=== PATIENT | female | born 1990 | race American Indian/Alaskan Native ===

== ENCOUNTER 2019-12-26 13:18 | Emergency (ER) | payer SELFPAY ==
[~2019-12-26] VITALS: Ht 170.2 cm; Wt 110.7 kg
[2019-12-26] MEDS ORDERED: VRAYLAR3 MG (13:38)
[2019-12-26] MEDS ORDERED: HYDROCODONE/APAP 5MG-325MG TAB PO ONE (13:45)
[2019-12-26] MEDS ORDERED: ONDANSETRON HCL 4 MG ORAL DISINTEGRATING TAB PO ONE (13:45)
[2019-12-26] MEDS ORDERED: CLINDAMYCIN PHOS 600 MG/ 4 ML VIAL IM ONE (13:45)
[2019-12-26] MEDS ORDERED: IBUPROFEN 200 MG TAB PO ONE (13:45)
[2019-12-26] MEDS ORDERED: HYDROCODONE/APAP 5MG-325MG TAB ONE (13:58)
[2019-12-26] MEDS ORDERED: IBUPROFEN 600 MG TAB ONE (13:58)
[2019-12-26] MEDS ORDERED: CLINDAMYCIN PHOS 600 MG/ 4 ML VIAL ONE (13:58)
[2019-12-26] MEDS ORDERED: ONDANSETRON HCL 4 MG ORAL DISINTEGRATING TAB ONE (13:58)
[2019-12-26 14:04] VITALS: BP 105/76
== END 2019-12-26 14:14 | disposition home or self-care (01) ==
LOC: FSED 13:18
DX: L02.411 Cutaneous abscess of right axilla (principal); L03.113 Cellulitis of right upper limb; F31.9 Bipolar disorder, unspecified
CPT/HCPCS: 96372; 99283; Q0162